=== PATIENT | male | born 1950 | race African-American/Black ===

== ENCOUNTER 2018-10-06 06:03 | Observation (INO) ==
[2018-10-06] MEDS ORDERED: NITROGLYCERIN 2% OINT 1 INCH/GM PACK TOP STA (06:38)
[2018-10-06] MEDS ORDERED: NITROGLYCERIN SL 0.4 MG TABLET SL PRN ×2 (06:38→09:27)
[2018-10-06] MEDS ORDERED: ASPIRIN 325 MG TABLET PO STA (06:38)
[2018-10-06 06:52] LABS: Basophils % 0.4 % (0.0-0.8); Eosinophils # 0.2 10*3/uL (0.0-0.87); Eosinophils % 1.8 % (0.00-10.9); Hemoglobin 13.6 GM/DL (14.0-18.0); Immature Granulocytes % 0.3 %; Immature Granulocytes Absolute 0.03 #; Lymphocytes # 2.4 10*3/uL (1.4-4.0); Lymphocytes % 26.4 % (21.2-54.2); Mean Corpuscular HGB Conc 32.4 GM/DL (32-36); Mean Corpuscular Hemoglobin 29 PG (27-34); Mean Corpuscular Volume 89.2 FL (87-102); Mean Platelet Volume 9.1 FL (9.6-12.0); Monocytes % 11.2 % (1.7-12.7); Neutrophils # 5.5 10*3/uL (1.4-7.4); Neutrophils % 59.9 % (38.7-73.9); Platelet Count 244 T/CUMM (130-400); Red Blood Count 4.71 MC/CUMM (3.8-5.5); Red Cell Distribution Width 14.6 % (9.3-17.3); White Blood Count 9.2 T/CUMM (4-12)
[2018-10-06 07:02] LABS: INR 1.1; PT Patient Result 11.6 SECS; Partial Thromboplastin Time 26.5 SECS (0-40)
[2018-10-06 07:18] LABS: Calcium 9.5 MG/DL (8.5-10.1)
[2018-10-06 07:19] LABS: Albumin 3.3 G/DL (3.4-5.0); Bilirubin,Total 0.8 MG/DL (0.2-1.0); Osmolality,Calculated 282.7 MOS/KG (273-304); Total Protein 7.4 G/DL (6.4-8.3)
[2018-10-06] MEDS ORDERED: POTASSIUM CHLORIDE 20 MEQ TABLET PO PRN ×2 (09:25→11:09)
[2018-10-06] MEDS ORDERED: GLUCAGON 1 MG VIAL IM PRN (09:25)
[2018-10-06] MEDS ORDERED: DEXTROSE 50% 25 GM/50 ML VIAL IV PRN (09:25)
[2018-10-06] MEDS ORDERED: MORPHINE 4 MG/1 ML VIAL IV PRN (09:25)
[2018-10-06] MEDS ORDERED: MAGNESIUM SULF RIDER 2 GM in PREMIX 1 EACH IV PRN ×2 (09:25→11:09)
[2018-10-06] MEDS ORDERED: ONDANSETRON 4 MG/2 ML VIAL IV PRN (09:25)
[2018-10-06] MEDS ORDERED: MAGNESIUM SULF RIDER 4 GM in PREMIX 1 EACH IV PRN (09:25)
[2018-10-06] MEDS: SODIUM CHLORIDE 0.45% 1,000 ML IV SCH ×2 (10:57→23:30)
[2018-10-06] MEDS: ENOXAPARIN 100 MG/ML SYRINGE SUBCUT SCH ×2 (11:02→20:32)
[2018-10-06] MEDS ORDERED: oxyCODONE/ACETAMINOPHEN 5-325 MG TABLET PO PRN (11:09)
[2018-10-06] MEDS ORDERED: ZALEPLON 5 MG CAPSULE PO PRN (11:09)
[2018-10-06] MEDS: INSULIN LISPRO 100 UNIT/ML SUBCUT SCH ×3 (12:57→20:21)
[2018-10-06] MEDS ORDERED: METHOCARBAMOL 500 MG TABLET PO PRN (18:55)
[2018-10-06] MEDS ORDERED: INSULIN NPH/REGULAR 70/30 100 UNIT/ML SUBCUT SCH (19:00)
[2018-10-06] MEDS: METOPROLOL TARTRATE 100 MG TABLET PO SCH (20:19)
[2018-10-06] MEDS: cloNIDine 0.1 MG TABLET PO SCH (20:19)
[2018-10-06] MEDS: POTASSIUM CHLORIDE 20 MEQ TABLET PO SCH (20:19)
[2018-10-06] MEDS: NITROGLYCERIN 2% OINT 1 INCH/GM PACK TOP SCH (20:27)
[2018-10-06] MEDS ORDERED: SIMVASTATIN 40 MG TABLET PO SCH (21:00)
[2018-10-07 04:22] LABS: Basophils # 0.1 10*3/uL (0.0-0.2); Basophils % 0.6 % (0.0-0.8); Eosinophils # 0.3 10*3/uL (0.0-0.87); Eosinophils % 2.8 % (0.00-10.9); Hematocrit 41.9 VOL% (42.0-52.0); Hemoglobin 13.5 GM/DL (14.0-18.0); Immature Granulocytes % 0.2 %; Immature Granulocytes Absolute 0.02 #; Lymphocytes # 3.5 10*3/uL (1.4-4.0); Lymphocytes % 38.6 % (21.2-54.2); Mean Corpuscular HGB Conc 32.2 GM/DL (32-36); Mean Corpuscular Hemoglobin 29 PG (27-34); Mean Corpuscular Volume 89.3 FL (87-102); Mean Platelet Volume 9.7 FL (9.6-12.0); Monocytes # 1.1 10*3/uL (0.11-0.8); Monocytes % 12.6 % (1.7-12.7); Neutrophils # 4.1 10*3/uL (1.4-7.4); Neutrophils % 45.2 % (38.7-73.9); Platelet Count 250 T/CUMM (130-400); Red Blood Count 4.69 MC/CUMM (3.8-5.5); Red Cell Distribution Width 14.7 % (9.3-17.3); White Blood Count 9.1 T/CUMM (4-12)
[2018-10-07 04:44] LABS: Albumin 3.2 G/DL (3.4-5.0); Bilirubin,Total 1.2 MG/DL (0.2-1.0); Calcium 8.8 MG/DL (8.5-10.1); Osmolality,Calculated 282.1 MOS/KG (273-304); Potassium 3.8 MMOL/L (3.5-5.1); Total Protein 6.7 G/DL (6.4-8.3)
[2018-10-07 04:48] LABS: Risk Ratio 2.28
[2018-10-07] MEDS ORDERED: FUROSEMIDE 40 MG TABLET PO SCH (08:00)
[2018-10-07] MEDS ORDERED: metFORMIN 500 MG TABLET PO SCH (08:00)
[2018-10-07] MEDS ORDERED: PANTOPRAZOLE 40 MG TABLET PO SCH (09:00)
[2018-10-07] MEDS ORDERED: INSULIN NPH/REGULAR 70/30 100 UNIT/ML SUBCUT SCH (09:00)
[2018-10-07] MEDS ORDERED: ASPIRIN EC 81 MG TABLET PO SCH (09:00)
[2018-10-07] MEDS: INSULIN LISPRO 100 UNIT/ML SUBCUT SCH ×2 (09:29→12:30)
[2018-10-07] MEDS: SODIUM CHLORIDE 0.45% 1,000 ML IV SCH (09:36)
[2018-10-07] MEDS: cloNIDine 0.1 MG TABLET PO SCH (09:38)
[2018-10-07] MEDS: METOPROLOL TARTRATE 100 MG TABLET PO SCH (09:38)
[2018-10-07] MEDS: ENOXAPARIN 100 MG/ML SYRINGE SUBCUT SCH (09:40)
[2018-10-07] MEDS: NITROGLYCERIN 2% OINT 1 INCH/GM PACK TOP SCH (09:40)
[2018-10-07] MEDS: POTASSIUM CHLORIDE 20 MEQ TABLET PO SCH (09:40)
[2018-10-07 12:19] VITALS: BP 163/104
== END 2018-10-07 15:41 | disposition home or self-care (01) ==
LOC: N.EDINP 06:03 → N.ED 06:03 → N.TELEN 09:51
PROVIDERS: ADMIT Internal Medicine Cardiovascular Disease; ATTEND Internal Medicine Cardiovascular Disease